=== PATIENT | female | born 1990 | race Caucasian/White ===

== ENCOUNTER → 2017-05-12 | Day surgery (SDC) | payer OTHER ==
[~2017-05-12] MED LIST: BUPIVACAINE HCL PF 0.75% 30 ML VIAL ONE; LIDOCAINE 1.5%/EPINEPHrine 1:200,000 PF SOLN 30 ML AMP ONE; SODIUM CHLOR 0.9% 1000 ML BAG IV ONE; ceFAZolin 2 GM PREMIX 50 ML ONE
== END | disposition home or self-care (01) ==
LOC: ESDC 09:34
PROVIDERS: ATTEND Orthopaedic Surgery Sports Medicine
DX: S83.512A Sprain of anterior cruciate ligament of left knee, initial encounter (principal); Z53.9 Procedure and treatment not carried out, unspecified reason
CPT/HCPCS: G0463; J0690; J7030; 99211

== ENCOUNTER → 2017-05-26 | Day surgery (SDC) | payer OTHER ==
[~2017-05-26] VITALS: Ht 162.6 cm; Wt 61.2 kg
[~2017-05-26] MED LIST changes: +*ONDANSETRON 4 MG VIAL PERIprocedural Use ONLY ONE; +*morphine SULFATE 10 MG/ML PERIprocedure ONLY ONE; +ACETAMINOPHEN 1000 MG/100 ML 100 ML IV ONE; +APREPITANT 40 MG CAP ONE; -BUPIVACAINE HCL PF 0.75% 30 ML VIAL ONE; +BUPIVACAINE/EPINEPHRINE 0.5% PF 30 ML VIAL ONE; +CHLORHEXIDINE GLUCONATE 2 % 1 PACK (2 CLOTHS) TOPICAL PRN; +CHLORHEXIDINE GLUCONATE 4% SOLN 120 ML BTL TOPICAL SCH; +DEXAMETHASONE SOD PHOS 4 MG/ML VIAL IV ONE; +DO NOT ADM ANY ANTICOAGULANT DRUGS PRN; +EPINEPHrine HCL (1:1000) 30 MG/30 ML VIAL ONE; +FAMOTIDINE 20 MG/2 ML VIAL ONE; +IBUP200T47 PO; -LIDOCAINE 1.5%/EPINEPHrine 1:200,000 PF SOLN 30 ML AMP ONE; +LIDOCAINE HCL 1% PF 5 ML SYRINGE OTHER ONE; +METOPROLOL TARTRATE 25 MG TAB PO PRN; +ONDANSETRON HCL 4 MG/2 ML VIAL IV ONE; +PERC5TAB12 PO; +POVIDONE IODINE 5% (ANTISEPSIS KIT) 4 APPLICATIONS EACH NARE PRN; +POVIDONE IODINE 7.5% SCRUB 118 ML BOTTLE TOPICAL SCH; +PROMETHAZINE INJ 25 MG/ML VIAL ONE; +PROPOFOL 200 MG/20 ML AMP IV ONE; -SODIUM CHLOR 0.9% 1000 ML BAG IV ONE; +SODIUM CHLORID 0.9% 500 ML IV PRN; +ceFAZolin 2 GM PREMIX 50 ML IV SCH; -ceFAZolin 2 GM PREMIX 50 ML ONE; +ceFAZolin INJ 1,000 MG VIAL ONE; +ePHEDrine/NS 25 MG/5 ML SYRINGE IV ONE; +oxyCODONE/ACETAMINOPHEN 5 MG/325 MG TAB PO PRN
[2017-05-26] MEDS: LACTATED RINGER'S 1000 ML IV PRN ×2 (08:20→14:09)
[2017-05-26 08:44] LABS: AUTOMATED NEUTROPHIL # 2.3 TH/MM3 (1.8-7.7); BASOPHIL % 1.1 % (0.0-2.0); EOSINOPHIL # 0.1 TH/MM3 (0-0.4); EOSINOPHIL % 1.7 % (0.0-4.0); HEMATOCRIT 38.7 % (35.0-46.0); LYMPH % 29.9 % (9.0-44.0); LYMPHOCYTE # 1.2 TH/MM3 (1.0-4.8); MEAN CORPUSCULAR HEMOGLOBIN 30.9 PG (27.0-34.0); MEAN CORPUSCULAR HGB CONC 33.6 % (32.0-36.0); MEAN PLATELET VOLUME 8.5 FL (7.0-11.0); MONOCYTE # 0.4 TH/MM3 (0-0.9); NEUT % 58.3 % (16.0-70.0); PLATELET COUNT 263 TH/MM3 (150-450); WHITE BLOOD COUNT 3.9 TH/MM3 (4.0-11.0)
[2017-05-26 15:00] VITALS: BP 115/68; PULSE 71; RESP 16; TEMP 97.8; O2SAT 100
--- NOTE | 2017-05-27 22:40 | MP ---
cc: EDEL SANCHEZ M.D. DATE OF SURGERY 05/26/2017 PREOPERATIVE DIAGNOSIS Left knee anterior cruciate ligament tear, left knee medial and lateral meniscus tear. POSTOPERATIVE DIAGNOSES Left knee anterior cruciate ligament tear, left knee medial and lateral meniscus tear. PROCEDURE 1. Left knee arthroscopic assisted anterior cruciate ligament allograft reconstruction 2. Left knee arthroscopic partial medial and lateral meniscectomy. SURGEON Dr. Migue Sanchez FINAL INSPECTOR [employer] BRYAN Crabtree ANESTHESIA General with an adductor canal femoral nerve block. REVIEW OF SYSTEMS Less than 50 mL. TOURNIQUET TIME Zero minutes. COMPLICATIONS None. JUSTIFICATION This patient is a 26-year-old female who sustained traumatic injury to left knee. She felt significant pain and instability symptoms. She has failed conservative treatment. Clinical exam as well as MRI confirmed the above-named findings. The patient was counseled as to risks, benefits and alternatives of the above-named surgical procedure. She did wish to proceed with surgery. PROCEDURE IN DETAIL A written consent was obtained. The patient was identified by name, taken to the operating room and placed supine on the operating table. General anesthesia was administered as well as 2 grams of IV Ancef. Left thigh carefully placed in well-padded leg reddy. Left lower extremity prepped and draped using isopropyl alcohol, Hibiclens solution and DuraPrep solution. After a time-out was performed, a standard medial and lateral parapatellar arthroscopic portal was established. The patellofemoral joint revealed no significant chondromalacia. The medial compartment revealed a large complex bucket-handle tear of medial meniscus. Arthroscopic biter followed arthroscopic shaver was introduced into the medial compartment to perform partial medial meniscectomy. The meniscal rim was probed and noted to be stable after meniscectomy. There was some evidence of early grade 2 chondromalacia in medial femoral condyle. The intercondylar notch revealed a complete destruction of the anterior cruciate ligament. The lateral compartment revealed a large complex radial tear to lateral meniscus extending to both the anterior and posterior horns with slap fragment. An arthroscopic shaver was introduced into the lateral compartment to perform partial lateral meniscectomy. The shaver was then used to perform a debridement of the torn anterior cruciate ligament stump. An arthroscopic Bur was used to perform notchplasty. The posterior wall was well-visualized. An Arthrex 6-mm [id number] femoral guide was then placed at the 2 o'clock position and, with the knee hyperflexed, the guide pin was then drilled exiting the superolateral aspect of the femur. Subsequently a 9.5 mm low profile cannulated acorn reamer was then drilled to a depth of 25 mm. The shaver was used to clean soft tissue and debris from within the knee joint. At this point, the tibial guide was centered within the footprint of the [place] ACL insertion and a guide pin was used to capture the 9.5-mm drill bit. The tibial tunnel was ____ 9.5 mm in diameter. The shaver was again used to clean soft tissue and bone debris for within the knee joint. At this point on the back table the posterior tibialis tendon allograft was thawed in antibiotic solution. Abdoul resendez was instrumental in fashioning the graft to a full diameter of 9.5 mm. #2 FiberWire whipstitch was placed in proximal distal portion of the graft and graft was pre-tensioned on the back table. Once prepared, an Arthrex tightrope was placed along the mid portion of the graft. The sutures from the tightrope were then shuttled from the tibial tunnel exiting the femoral tunnel. The tightrope anchor was then pulled from the tibial tunnel exiting the femoral tunnel and obtained purchase in lateral femoral cortex. The graft was then pulled from tibial tunnel and fully seated in the femoral tunnel. The knee was taken through full range of motion. No evidence of pistoning or impingement. With the leg held near full extension, a guidewire was placed along into anterior portal of the graft and an Arthrex 9 x 20 mm bioabsorbable interference screw was used for fixation of tibial side. An intraoperative Domenica exam was performed which was negative. The graft exiting the tibial tunnel was removed with a 15 blade scalpel. Tibial incision was closed with 3-0 Vicryl suture. Skin incision was closed with 3-0 nylon suture. Sterile dressing applied. The patient tolerated the procedure with no intraoperative complications noted. Abdoul garland certified was present during the entire procedure to include patient positioning and the procedure itself. The medical necessity of a physician studio assistant was indicated due to the complexity of the case. He assisted with manipulation of the leg and also manipulation of the camcer. He also manipulation of the camera. He assisted with preparation of graft, implantation of graft and implantation of internal fixation device for purpose of reconstruction. MD CHETAN Hernandez/ /11:25 AM /10:01 PM
== END | disposition home or self-care (01) ==
LOC: HSDC 07:51
PROVIDERS: ATTEND Orthopaedic Surgery Sports Medicine
DX: S83.242A Other tear of medial meniscus, current injury, left knee, initial encounter (principal); S83.282A Other tear of lateral meniscus, current injury, left knee, initial encounter; S83.512A Sprain of anterior cruciate ligament of left knee, initial encounter
CPT/HCPCS: 01400; 29880; 29888; 85025; 86850; 86900; 86901; C1713; J0131; J0171; J0690; J1100; J2270; J2405; J2550; J7120; J8501